=== PATIENT | female | born 1980 | race Caucasian/White ===

== ENCOUNTER → 2017-03-11 | Outpatient (CLI) | payer BC | END | disposition home or self-care (01) | LOC: C.PAPS 14:12 | PROVIDERS: ATTEND Obstetrics & Gynecology | DX: Z01.411 Encounter for gynecological examination (general) (routine) with abnormal findings (principal); R87.615 Unsatisfactory cytologic smear of cervix ==

== ENCOUNTER → 2017-04-15 | Outpatient (CLI) | payer BC | END | disposition home or self-care (01) | LOC: C.PAPS 14:06 | PROVIDERS: ATTEND Obstetrics & Gynecology | DX: R87.615 Unsatisfactory cytologic smear of cervix (principal) ==

== ENCOUNTER → 2017-06-30 | Outpatient (CLI) | payer BC ==
[2017-06-30 17:19] LABS: BASO % 0.2 %; BASO ABS # 0.02 K/uL (0-0.2); COMPLETE YES; EOS % 1.1 %; HEMATOCRIT 36.7 % (37-47); IG% 0.2 %; LYMPH % 18.4 %; LYMPH ABS # 1.58 K/uL (1.2-3.4); MEAN CELL VOLUME 88.6 fL (80-100); MEAN CORPUSCULAR HEMOGLOBIN 31.2 pg (25-34); MEAN CORPUSCULAR HGB CONC 35.1 g/dl (32-36); MEAN PLATELET VOLUME 11.3 fL (7.4-10.4); MONO % 4.6 %; NEUT % 75.5 %; PLATELET COUNT 163 K/uL (130-400); RED BLOOD COUNT 4.14 M/uL (4.2-5.4); WHITE BLOOD COUNT 8.57 K/uL (4.8-10.8)
[2017-06-30 17:29] LABS: URINE APPEARANCE CLEAR (CLEAR); URINE BILIRUBIN NEG (NEG); URINE COLOR YELLOW; URINE NITRITE NEG (NEG); URINE SPECIFIC GRAVITY 1.027 (1.000-1.030); UROBILINOGEN NEG (NEG)
[2017-06-30 17:35] LABS: MANUAL MICROSCOPIC REQUIRED? NO; REVIEW REQ? NO
== END | disposition home or self-care (01) ==
LOC: C.LAB1850 16:11
PROVIDERS: ATTEND Obstetrics & Gynecology
DX: O09.521 Supervision of elderly multigravida, first trimester (principal)

== ENCOUNTER → 2017-06-30 | Outpatient (CLI) | payer BC ==
[2017-07-03 00:44] LABS: CHLAMYDIA TRACH RNA*** NOT DETECTED (NOT DETECTED); GC (NEIS GONORRHOEAE)RNA** NOT DETECTED (NOT DETECTED)
== END | disposition home or self-care (01) ==
LOC: C.LABSPEC 17:37
PROVIDERS: ATTEND Obstetrics & Gynecology
DX: O09.521 Supervision of elderly multigravida, first trimester (principal)

== ENCOUNTER → 2017-07-23 | Outpatient (CLI) | payer BC ==
[2017-07-23 13:29] LABS: GTGD 50 Grams
== END | disposition home or self-care (01) ==
LOC: C.LAB1850 09:12
PROVIDERS: ATTEND Obstetrics & Gynecology
DX: O09.522 Supervision of elderly multigravida, second trimester (principal)

== ENCOUNTER → 2017-10-19 | Outpatient (CLI) | payer BC ==
[2017-10-19 12:10] LABS: HEMATOCRIT 32.1 % (37-47)
[2017-10-19 14:24] LABS: GTGD 50 Grams
== END | disposition home or self-care (01) ==
LOC: C.LAB1850 10:45
PROVIDERS: ATTEND Obstetrics & Gynecology
DX: O09.523 Supervision of elderly multigravida, third trimester (principal); Z3A.00 Weeks of gestation of pregnancy not specified

== ENCOUNTER 2017-12-28 21:02 | Inpatient (IN) | payer OTHER ==
[~2017-12-28] VITALS: Ht 170.2 cm; Wt 73.9 kg
[2017-12-28] MEDS ORDERED: LACTATED RINGER'S 1000ML 1,000 ML IV PRN (21:41)
[2017-12-28] MEDS ORDERED: PENICILLIN G POTASSIUM IV 6 MU in DEXTROSE 5% 250ML 250 ML IV ONE (22:00)
[2017-12-28 22:12] LABS: HEMATOCRIT 31.9 % (37-47); HEMOGLOBIN 10.8 g/dL (12.0-16.0); MEAN CELL VOLUME 89.4 fL (80-100); MEAN CORPUSCULAR HEMOGLOBIN 30.3 pg (25-34); MEAN CORPUSCULAR HGB CONC 33.9 g/dl (32-36); MEAN PLATELET VOLUME 10.9 fL (7.4-10.4); PLATELET COUNT 156 K/uL (130-400); RED CELL DISTRIBUTION WIDTH CV 13.5 % (11.5-14.5); RED CELL DISTRIBUTION WIDTH SD 43.9 fL (36.4-46.3); WHITE BLOOD COUNT 7.05 K/uL (4.8-10.8)
[2017-12-28 22:28] VITALS: Ht 170.2 cm; Wt 73.9 kg
[2017-12-28] MEDS ORDERED: PRENTAB26 PO (22:32)
[2017-12-28] MEDS: LACTATED RINGER'S 1000ML 1,000 ML IV SCH (22:59)
[2017-12-29] MEDS ORDERED: NURSING VERBAL MED ORDER ONE (00:45)
[2017-12-29] MEDS ORDERED: OXYTOCIN 30 UNITS/500ML NSS IV SCH (02:30)
[2017-12-29] MEDS: PENICILLIN G POTASSIUM IV 3 MU in DEXTROSE 5% 100ML 100 ML IV PRN ×2 (02:43→07:02)
[2017-12-29] MEDS ORDERED: BUPIVACAINE 0.25% 30 ML VIAL ONE (05:14)
[2017-12-29] MEDS ORDERED: EpHEDrine SULFATE INJ 50 MG/ML AMP ONE (05:14)
[2017-12-29] MEDS ORDERED: FENTANYL CITRATE INJ 50 MCG/1 ML 2 ML VIAL ONE (05:15)
[2017-12-29] MEDS ORDERED: FENTANYL 2MCG/ML ROPIV 1.25MG/ML 100ML BAG EPI ONE (05:15)
[2017-12-29] MEDS: LACTATED RINGER'S 1000ML 1,000 ML IV SCH (05:44)
[2017-12-29] MEDS ORDERED: LACTATED RINGER'S 1000ML 500 ML IV PRN (06:23)
[2017-12-29] MEDS ORDERED: NALOXONE HCL INJ 1 MG in SODIUM CHLORIDE 0.9% 1000ML 1,000 ML IV PRN (06:23)
[2017-12-29] MEDS ORDERED: NALOXONE HCL INJ 0.4 MG/1 ML VIAL/CARP IV PRN (06:30)
[2017-12-29] MEDS ORDERED: EpHEDrine SULFATE INJ 50 MG/ML AMP IV PRN (06:30)
[2017-12-29] MEDS ORDERED: NALBUPHINE HCL INJ 10 MG/ML AMP IV PRN (06:30)
[2017-12-29] MEDS ORDERED: FENTANYL 2MCG/ML ROPIV 1.25MG/ML 100ML BAG EPI PRN (06:30)
[2017-12-29] MEDS ORDERED: ONDANSETRON INJ 2 MG/ML 2 ML VIAL IV PRN (06:30)
[2017-12-29] MEDS ORDERED: PROMETHAZINE HCL INJ 6.25 MG in SODIUM CHLORIDE 0.9% 50ML 50 ML IV PRN (06:30)
[2017-12-29] MEDS ORDERED: DiphenhydrAMINE HCL 50 MG/ML VIAL IV PRN (06:30)
[2017-12-29] MEDS ORDERED: LACTATED RINGER'S 1000ML 1,000 ML IV SCH (09:09)
[2017-12-29] MEDS ORDERED: HYDROCORTISONE ACETATE 25 MG SUPP PR PRN (09:15)
[2017-12-29] MEDS ORDERED: SUPERCREAM 0.870 % 15GM JAR EXT PRN (09:15)
[2017-12-29] MEDS ORDERED: OXYCODONE/ACETAMINOPHEN 5-325 TAB PO PRN (09:15)
[2017-12-29] MEDS ORDERED: BENZOCAINE 20% AER SPR 82.5 GM CAN EXT PRN (09:15)
[2017-12-29] MEDS ORDERED: LANOLIN OINT EXT PRN (09:15)
[2017-12-29] MEDS ORDERED: DIPHTHERIA/TETANUS/PERTUSSIS 0.5 ML SYR/VIAL IM. ONE (09:15)
[2017-12-29] MEDS ORDERED: IBUPROFEN 600 MG TAB PO PRN (09:15)
[2017-12-29] MEDS ORDERED: OXYTOCIN 30 UNITS/500ML NSS IV PRN (09:15)
[2017-12-29] MEDS ORDERED: ACETAMINOPHEN 325 MG TAB PO PRN (09:15)
--- NOTE | 2017-12-29 09:28 | DELIVERY SUMMARY ---
DATE OF OPERATION: 12/29/2017 PREOPERATIVE DIAGNOSES: 1. Cabral intrauterine at 39 and 5. 2. Premature rupture of membranes followed by induction of labor. 3. Group B positive. POSTOPERATIVE DIAGNOSES: Same. PROCEDURE: Spontaneous vaginal delivery and repair of first degree laceration. SURGEON: Camilla Peterson MD. DATABASE REPORTING CONSULTANT: None. ESTIMATED BLOOD LOSS: 250. COMPLICATIONS: None. DISPOSITION: Stable to labor and delivery. DESCRIPTION OF PROCEDURE: Yoselyn was admitted by my partner Dr. Thurston for premature rupture of membranes after ambulating and not making significant change, Pitocin was started and the patient was also given antibiotic prophylaxis for group B strep positivity. Shortly after I took over the care of the patient at 8:30 in the morning, she began noticing pressure and an urge to push. She was checked and was found to be completely dilated and starting to crown. We quickly prepped for delivery. Through the next contraction without any maternal pushing efforts, the head slowly but surely delivered in an occiput anterior position. The shoulders then delivered through the next contraction wave with no pushing again at all. The infant was then placed on the maternal abdomen where the cord was doubly clamped and cut by the father. The was female and very vigorous immediately from . Cord blood was collected and the placenta delivered spontaneously and was carefully examined and found to be intact with a 3-vessel cord. The cervix, vagina and perineum showed only a first degree laceration which was hemostatic and appeared to be mostly through white primarily fibrous tissue that is likely a scar from a prior delivery. This was reapproximated with 3-0 Vicryl although it was hemostatic to ensure good cosmesis. The patient at the time of this dictation is in stable condition. I attest to the content of the Intraoperative Record and any orders documented therein. Any exception s are noted below.
--- NOTE | 2017-12-29 11:17 | Anesthesia Procedure Note ---
Anesthesia Epidural Removal Nt Date & Time Dec 29, 2017 at 11:17 Vital Signs Pain Intensity: 0.0 Notes Mental Status: alert / awake / arousable, participated in evaluation Nausea / Vomiting: adequately controlled Pain: adequately controlled Airway Patency, RR, SpO2: stable & adequate BP & HR: stable & adequate Hydration State: stable & adequate Neuraxial Anesthesia: was administered, sensory block is resolving Anesthetic Complications: no major complications apparent, pt satisfied with anesthetic care Epidural: removed without complications, with tip intact
[2017-12-29 11:30] VITALS: BP 102/60; PULSE 63; TEMP 36.6
[2017-12-29 13:05] VITALS: BP 112/65; PULSE 74; TEMP 37; O2SAT 97
[2017-12-29 15:30] VITALS: BP 106/68; PULSE 74; TEMP 36.9; O2SAT 95
[2017-12-29 19:28] VITALS: BP 111/67; PULSE 69; TEMP 36.9
[2017-12-29] MEDS: DOCUSATE SODIUM 100 MG CAP PO SCH (20:36)
[2017-12-29 23:30] VITALS: BP 102/60; PULSE 63; TEMP 36.6
[2017-12-30 03:00] VITALS: BP 111/70; PULSE 72; TEMP 36.4
--- NOTE | 2017-12-30 06:24 | Progress Note ---
Subjective Dec 30, 2017. Subjective conversation w/ patient (Patient seen and examined at bedside. No overnight events reported) Ambulation: limited ambulation (has not been up and ambulating yet) Voiding: no voiding problems Passing Gas: Yes Diet Tolerance: Regular Diet Lochia: Moderate (decreased from yesterday) Feeding Type: Breast Feeding Pain: 1-2/10 in severity Review of Systems Constitutional: No fever, No chills, No sweats Respiratory: No cough, No shortness of breath Cardiac: No chest pain, No edema Breast: No breast pain Abdomen: No pain, No nausea, No vomiting Female : No dysuria Objective Vital Signs Date Time Temp Pulse Resp B/P (MAP) Pulse Ox O2 Delivery O2 Flow Rate FiO2 12/30/17 03:00 36.4 72 20 111/70 (84) Room Air 12/29/17 23:30 Room Air 12/29/17 23:30 36.6 63 20 102/60 (74) Room Air 12/29/17 19:28 36.9 69 16 111/67 (82) Room Air 12/29/17 15:30 95 Room Air 12/29/17 15:30 36.9 74 18 106/68 (81) 95 Room Air 12/29/17 13:05 37.0 74 18 112/65 (81) 97 Room Air 12/29/17 13:05 97 Room Air Physical Exam General Appearance: WELL-APPEARING, WD/WN, NO APPARENT DISTRESS Respiratory/Chest: chest non-tender, lungs clear, normal breath sounds, no respiratory distress, no accessory muscle use Cardiovascular: regular rate, rhythm, no edema, no gallop, no murmur Abdomen: normal bowel sounds, non tender, soft Fundus: Firm, Tender, Relation to Umbilicus (at the umbilicus) Extremities: non-tender, normal inspection, no pedal edema, no calf tenderness Laboratory Results Last 24 Hours Test 12/30/17 04:44 Medications Current Inpatient Medications Medications (Trade) Dose Ordered Sig/Rosmery Route Start Time Stop Time Status Last Admin Dose Admin Penicillin G Potassium 3 mu/ Dextrose 106 ml @ 100 mls/hr Q4H PRN IV 12/28/17 21:45 12/30/17 21:44 12/29/17 07:02 100 MLS/HR Lactated Ringer's 1,000 ml @ 125 mls/hr Q8H IV 12/28/17 21:41 12/30/17 21:40 12/29/17 05:44 125 MLS/HR Lactated Ringer's 1,000 ml @ 999 mls/hr Q1H1M PRN IV 12/28/17 21:41 01/27/18 21:40 12/29/17 05:25 999 MLS/HR Oxytocin (Pitocin IV) 30 units UD IV 12/29/17 02:30 01/28/18 02:29 12/29/17 02:42 30 UNITS Fentanyl/ Ropivacaine (Fentanyl 2MCG/ Ml/Ropivacaine 1.25MG/ML) 100 ml PRN PRN EPI 12/29/17 06:30 12/30/17 06:29 12/29/17 07:00 100 ML Naloxone HCl (Narcan Inj) 0.1 mg UD PRN IV 12/29/17 06:30 12/30/17 06:29 Lactated Ringer's 500 ml @ 999 mls/hr Q31M PRN IV 12/29/17 06:23 12/30/17 06:22 Ephedrine Sulfate (EpHEDrine SULFATE INJ) 10 mg Q5M PRN IV 12/29/17 06:30 12/30/17 06:29 Diphenhydramine HCl (Benadryl Inj) 25 mg Q6H PRN IV 12/29/17 06:30 12/30/17 06:29 Nalbuphine HCl (Nubain Inj) 5 mg Q10M PRN IV 12/29/17 06:30 12/30/17 06:29 Naloxone HCl 1 mg/ Sodium Chloride 1,002.5 ml @ 50 mls/hr Q20H3M PRN IV 12/29/17 06:23 12/30/17 06:22 Ondansetron HCl (Zofran Inj) 4 mg Q6H PRN IV 12/29/17 06:30 12/30/17 06:29 Promethazine HCl 6.25 mg/Sodium Chloride 50.25 ml @ 200 mls/hr Q6H PRN IV 12/29/17 06:30 12/30/17 06:29 Lactated Ringer's 1,000 ml @ 125 mls/hr Q8H IV 12/29/17 09:09 01/28/18 09:08 Oxytocin (Pitocin IV) 30 units UD PRN IV 12/29/17 09:15 01/28/18 09:14 Benzocaine (Dermoplast Aero Spr) 1 appln PRN PRN EXT 12/29/17 09:15 01/28/18 09:14 Cocaine HCl (Supercream 0.870% Cr) BID PRN EXT 12/29/17 09:15 01/12/18 09:14 Hydrocortisone Acetate (Anusol Hc Supp) 25 mg BID PRN PA 12/29/17 09:15 01/28/18 09:14 Lanolin (Lanolin Oint) PRN PRN EXT 12/29/17 09:15 01/28/18 09:14 Prenat Multivit/ [place]/Iron/Folic Ac ( Vitamin Tab) 1 tab DAILY PO 12/30/17 08:00 01/29/18 07:59 Ibuprofen (Motrin Tab) 600 mg Q4H PRN PO 12/29/17 09:15 01/28/18 09:14 12/30/17 00:16 600 MG Acetaminophen (Tylenol Tab) 650 mg Q6H PRN PO 12/29/17 09:15 01/28/18 09:14 Oxycodone/ Acetaminophen (Percocet 5-325mg Tab) 1 tab Q4H PRN PO 12/29/17 09:15 01/12/18 09:14 Docusate Sodium (coLACE CAP) 100 mg BID PO 12/29/17 20:00 01/28/18 19:59 12/29/17 20:36 100 MG Assessment and Plan Post- Day#: 1 Continue Routine Care: A&P: s/p day 1 - encourage ambulation & - analgesia prn - monitor lochia - vitals reviewed and wnl - hemoglobin yesterday 10.8, will review today's results when available Melanie Vallejo, PGY1 Resident Physician Supervision Note: I interviewed and examined the patient. Discussed with Dr. Vallejo and agree with findings and plan as documented in the note. Any exceptions or clarifications are listed here: [None] Documented By: Camilla Peterson Resident Tracking Resident Involvement: Resident Care Provided Care Provided: OB Delivery
[2017-12-30 06:35] LABS: HEMATOCRIT 34.3 % (37-47); HEMOGLOBIN 11.4 g/dL (12.0-16.0)
--- NOTE | 2017-12-30 07:37 | Discharge Instructions ---
Discharge Instructions Date of Service Dec 30, 2017. Admission Reason for Admission: Check Labor Discharge Discharge Diagnosis / Problem: Vaginal Delivery Discharge Goals Goal(s): Routine recovery after delivery Medications Continue Dispensed Medications: supercream, dermaplast, tucks, lansinoh Activity Recommendations Activity Limitations: per Instructions/Follow-up section . Instructions / Follow-Up Instructions / Follow-Up ACTIVITY RECOMMENDATIONS: * Gradual return to full activity over the next 2-3 weeks. * No lifting - nothing heavier than baby over the next 2-3 weeks. * Do not engage in vigorous exercise, sexual activity or sports until cleared by your physician. * Do not drive or operate any motorized equipment until cleared by your physician. * You may shower/bathe daily. MEDICATIONS: For discomfort or pain, you may use Acetaminophen (Tylenol), Ibuprofen (Advil), or Naproxen (Aleve) following the package directions. For constipation you may use Colace following the package directions. BREAST CARE: If you are not breast feeding: * Wear a supportive bra 24 hours a day for one to two weeks. * Avoid stimulating your breasts and nipples as much as possible during the first few weeks after delivery. * When taking a shower, have the warm water hit your back, not breasts. * When your breasts feel full, apply ice packs. Usually three to four times a day helps ease the discomfort. * Take a mild pain medication (Tylenol / Motrin) when you are uncomfortable. If breast feeding: * Use breast milk to lubricate nipples. Lansinoh cream may be used for sore nipples. You do not need to remove cream prior to breast feeding. If using a different brand of cream, check the label for directions regarding removal of cream prior to nursing. * Wear a supportive bra. * If having problems with breasts or breast feeding, call a network security consultant or your health care provider. EPISIOTOMY CARE: After delivery, if you have an episiotomy (stitches), the following steps will ease discomfort and aid healing. * For the first 24 hours after delivery, place ice packs next to your episiotomy to help reduce swelling. * After the first 24 hour-period, sitz baths, either portable or in the tub, are suggested. A shower with a shower arm sprayed over the episiotomy may be comforting. * Khadra care should be done after each voiding and bowel movement. Squirt warm water from a plastic bottle over the perineum (region of the body between the anus and urinary opening) and pat dry. * Use Dermoplast to ease discomfort. Shake container. Sigurd directly over the episiotomy. Place a Tucks on a clean sanitary pad next to your episiotomy. SPECIAL CARE INSTRUCTIONS: When you are discharged from the hospital, it is important for you to follow the instructions listed below: * During the first week at home, you should be able to care for yourself and your baby. In addition, the usual light household activities are encouraged. * Limit your activities to the way you feel. Do not try to clean the house or move furniture. Be sensible. * If you actively engage in sports and have done so up until the time of your delivery, you may resume these activities as soon as you feel able. This may take up to one month or even longer. Use good judgment. * Continue to take your vitamins for at least six weeks after the of your baby. * Your diet need not be limited unless you were on a special diet before your delivery. Breast-feeding mothers need around 2500 calories per day and at least 64-80 ounces of fluid per day (8 to 10 glasses). * You should eat foods from the four major food groups. Crash diets or fad diets are to be avoided. Eating lean meats, fresh fruits and vegetables, low-fat dairy products, high fiber foods and a regular exercise program, will help you get back to your pre- weight without putting your health at risk. * Constipation is sometimes a problem after delivery. Take a mild laxative as needed. If breast feeding, Milk of Magnesia is acceptable to use. You may use a suppository or Fleets enema if no episiotomy. * A daily shower or tub bath is suggested. Be sure to thoroughly and gently dry the perineum. * A bloody vaginal discharge will usually continue until around four weeks post . A small amount of bleeding may continue for as long as six weeks. Vaginal discharge changes from the bright red bleeding after delivery to pink then brownish and finally yellowish-pink before becoming white and disappearing. * Bleeding may increase with activity. Your first period may come in 4-8 weeks. If you are breast feeding, your period may be delayed even longer. * [place] (sex) can begin whenever both you and your partner feel comfortable and do not have any form of genital infection. It is recommended that you wait at least six weeks for internal and external healing to occur. If you have questions, please talk to your health care practitioner. A condom should be used to prevent infection and . * Foreplay, gentle intercourse and lubrication is very important the first several times to prevent pain. A water-based lubricant such as K-Y jelly or Astroglide may be used. * If you have RH negative blood and your baby is RH positive, you will receive RHOGAM by injection prior to discharge. The nurse will give you a card to keep with you that has the date and place that you received RHOGAM after delivery. * During your care, you had a Rubella screen done to check for the presence of rubella antibodies in your blood. If your test was negative, you will receive a Rubella vaccine prior to discharge. This vaccine may cause a fever, soreness at the injection site and flu-like symptoms. If these symptoms persist, notify your health care practitioner. is not advised for one month after a Rubella vaccine. * Verbalizes understanding of car seat law as reviewed with patient nursing. * Car Seat hand-out given and reviewed with patient by nursing. * Shaken baby information reviewed with patient by nursing. Call you doctor if: * Heavy bleeding (saturating several pads an hour) or passing clots the size of your fist. * A fever >101 degrees F (38.3 degrees C) on two occasions four hours apart and /or chills. * Unusual pain in the pelvic or vaginal areas. * "Baby Blues" lasting longer than two weeks. If you have any questions or concerns, call your health care practitioner at . FOLLOW UP VISIT: * Please call the office at to schedule a 6 week examination. It is important you keep this appointment. It is important for you to make arrangements for either yearly or twice yearly check-ups thereafter. Current Hospital Diet Patient's current hospital diet: Regular OB Diet Discharge Diet Recommended Diet: Regular Diet Pending Studies Studies pending at discharge: no Medical Emergencies . Who to Call and When: Medical Emergencies: If at any time you feel your situation is an emergency, please call 911 immediately. . Non-Emergent Contact Non-Emergency issues call your: Primary Care Provider . . "Provider Documentation" section prepared by Melanie Vallejo. . VTE Core Measure Inpt VTE Proph given/why not?: Treatment not indicated
[2017-12-30 07:45] VITALS: BP 103/65; PULSE 60; TEMP 36.9; O2SAT 96
[2017-12-30] MEDS ORDERED: PRENATAL VITAMIN TAB PO SCH (08:00)
[2017-12-30] MEDS: DOCUSATE SODIUM 100 MG CAP PO SCH (08:29)
[2017-12-30 11:03] VITALS: BP_DIAS 65; PULSE 60; TEMP 36.9
== END 2017-12-30 13:35 | disposition home or self-care (01) | DRG 775 ==
LOC: C.LD 21:02 → C.OPB 21:02 → C.LD 21:44 → EEVIPCON 21:44 → C.OPB 21:44 → C.OBG 12-29 13:05
PROVIDERS: ADMIT Obstetrics & Gynecology; ATTEND Obstetrics & Gynecology
PROC: 0HQ9XZZ Repair Perineum Skin, External Approach (ICD-10-PCS; principal; 2017-12-29)
PROC: 10E0XZZ Delivery of Products of Conception, External Approach (ICD-10-PCS; principal; 2017-12-29)
DX: O42.92 Full-term premature rupture of membranes, unspecified as to length of time between rupture and onset of labor (principal); O99.824 Streptococcus B carrier state complicating childbirth; O70.0 First degree perineal laceration during delivery; Z3A.39 39 weeks gestation of pregnancy; O09.523 Supervision of elderly multigravida, third trimester; Z37.0 Single live birth